=== PATIENT | male | born 1950 | race Caucasian/White ===

== ENCOUNTER 2016-11-24 14:35 | Emergency (ER) | payer MEDICARE, BC ==
[~2016-11-24 14:35] MED LIST: CYCL10TA2 PO; PRED20TA PO
[2016-11-24 15:03] VITALS: BP 140/74
--- NOTE | 2016-11-24 15:29 | PHYS DOC ---
Past Medical History Past Medical History: DVT, Other Additional Past Medical Histor: ENLARGED PROSTATE Past Surgical History: Appendectomy, Knee Replacement, Tonsillectomy, Other Additional Past Surgical Histo: KNEE SURGERY RIGHT FOOT SURGERY WITH DUSTIN AND PINS Alcohol Use: None Drug Use: None Adult General Chief Complaint Chief Complaint: Neck Pain [facility] HPI Patient is a 65 year old male presents emergency room with multiple complaints : Atraumatic neck pain the patient attributes to using his crutches because his right foot is currently in a cast following surgery. Patient does have a history of spinal stenosis and degenerative disc disease. He is adamant that he has not injured his neck secondary to a fall. Patient also complains of bilateral wrist pain, right currently greater than left. He also exhibits utilizing the crutches with. He also complains of atraumatic right knee pain is been ongoing for several weeks. Patient have a slip and fall. He has been able to perform partial weightbearing with his right knee. He states it hurts more when he's had his legs crossed. He states when he crosses his legs, his right knee as to her much more especially when he straightens it out. Patient also has a complaint of an ongoing cough has been present for approximately 2 and half weeks. Patient is a pack-a-day smoker. He has cut back from 2 packs a day within the past year. He denies any history of pulmonary disease. He denies antibiotics, hospitalization or foreign travel within the past 90 days. Given these complaints, his primary complaint is his neck pain. He has been seen here in the past. He states he was seen by a "spine surgeon" who essentially stated that surgery would not do any good. Patient has also gone to see a physical therapist and a massage therapist. He states that he was not receiving very well with the physical therapy clinic and will not go back there. Review of Systems Review of Systems Constitutional: Denies fever or chills [] Eyes: Denies change in visual acuity, redness, or eye pain [] HENT: Denies nasal congestion or sore throat [] Respiratory: Denies cough or shortness of breath [] Cardiovascular: No additional information not addressed in HPI [] GI: Denies abdominal pain, nausea, vomiting, bloody stools or diarrhea [] : Denies dysuria or hematuria [] Musculoskeletal: Denies back pain or joint pain [] Integument: Denies rash or skin lesions [] Neurologic: Denies headache, focal weakness or sensory changes [] Endocrine: Denies polyuria or polydipsia [] Current Medications Current Medications Current Medications Medications (Trade) Dose Ordered Sig/Cynthia Start Time Stop Time Status Last Admin Dose Admin Dexamethasone Sodium Phosphate (Decadron) 10 mg 1X ONCE 11/24/16 15:30 11/24/16 15:31 DC 11/24/16 15:44 10 MG Morphine Sulfate 10 mg 1X ONCE 11/24/16 15:30 11/24/16 15:31 DC 11/24/16 15:41 10 MG Orphenadrine Citrate (Norflex) 60 mg 1X ONCE 11/24/16 15:30 11/24/16 15:31 DC 11/24/16 15:43 60 MG Allergies Allergies Allergies Coded Allergies Type Severity Reaction Last Updated Verified iron Allergy Mild rash 06/19/15 Yes Physical Exam Physical Exam Constitutional: Well developed, well nourished, mild distress, non-toxic appearance. Patient smells of cigarette smoke. HENT: Normocephalic, atraumatic, bilateral external ears normal, oropharynx moist, no oral exudates, nose normal. Eyes: PERRLA, EOMI, conjunctiva normal, no discharge. [] Neck: Patient's neck is normal in appearance without any erythema or obvious deformity. There is tenderness to palpation to the bilateral paraspinous soft tissues at the level of C2-C5. There is no palpable defect, deformity or active spasm. There is also some midline tenderness in the same region. There is no step-off deformity. Brudzinski's is negative. Patient does complain of increased pain with both left and right lateral rotation as well as flexion and extension. Cardiovascular:Heart rate regular rhythm, no murmur [] Lungs & Thorax: There is no respiratory distress respiratory fatigue. Lung sounds are clear to auscultation bilaterally. Abdomen: Bowel sounds normal, soft, no tenderness, no masses, no pulsatile masses. [] Skin: Warm, dry, no erythema, no rash. [] Back: No tenderness, no CVA tenderness. [] Extremities: Right knee is normal in appearance with mild tenderness to palpation to the insertion point of the vastus lateralis. There is no palpable defect or deformity. Right knee is without fusiform swelling and erythema. There is no high riding patella. Ligaments are stable with solid endpoints. Right wrist is normal in appearance without erythema or swelling. There is tenderness to palpation to the flexor tendons near the insertion to the carpal tunnel. There is no palpable defect, deformity. There is no erythema. Neurologic: Alert and oriented X 3, normal motor function, normal sensory function, no focal deficits noted. [] Psychologic: Affect normal, judgement normal, mood normal. [] Current Patient Data Vital Signs Vital Signs Date Time Temp Pulse Resp B/P Pulse Ox O2 Delivery O2 Flow Rate FiO2 11/24/16 15:03 97.6 88 22 94 Room Air 97.6 EKG EKG [] Radiology/Procedures Radiology/Procedures [] Course & Med Decision Making Course & Med Decision Making Pertinent Labs and Imaging studies reviewed. (See chart for details) [] Dragon Disclaimer Dragon Disclaimer This electronic medical record was generated, in whole or in part, using a voice recognition dictation system. Departure Departure Impression: Primary Impression: Degenerative disc disease, cervical Additional Impressions: Tendinitis of both wrists Knee pain, right Disposition: HOME, SELF-CARE Condition: GOOD Referrals: BOLA COYNE (PCP) Patient Instructions: Cervical Strain and Sprain with Rehab-SportsMed, Cough, Adult, [id number], Knee Pain, Tendinitis, [id number] Additional Instructions: 1. Take the medication as prescribed. You did receive a long-acting steroid here in the emergency department. 2. It will be very important for you to follow up with your primary care doctor next week to discuss your neck pain, wrist pain, knee pain and cough. It is also important for you to make contact with your primary care doctor's office so that arrangements can be made to have your PT/INR drawn. 3. Review the discharge instructions for self-care and reasons to return to the emergency department. 4. Call your primary care doctor's office Sunday to schedule a follow-up appointment. Scripts Cyclobenzaprine Hcl 10 Mg Tablet1 Tab PO TID muscle relaxer #21 TAB Prov:ALLYSON ORTEGA 11/24/16 Oxycodone/Apap 7.5-325 (Percocet 7.5-325 Mg Tablet)1 Each Tablet1 Tab PO PRN Q6HRS PRN PAIN #20 TAB Ref 0 Prov:ALLYSON ORTEGA 11/24/16 Problem Qualifiers ALLYSON ORTEGA Nov 24, 2016 15:29
[2016-11-24] MEDS ORDERED: MORPHINE SULFATE 10 MG/ML VIAL. IM ONE (15:30)
[2016-11-24] MEDS ORDERED: DEXAMETHASONE SOD PHOS 4 MG/ML VIAL IM ONE (15:30)
[2016-11-24] MEDS ORDERED: ORPHENADRINE CITRATE 60 MG/2 ML VIAL. IM ONE (15:30)
[2016-11-24] MEDS ORDERED: OXYC-244 PO (15:55)
[2016-11-24] MEDS ORDERED: CYCL10TA2 PO (15:55)
== END 2016-11-24 16:01 | disposition home or self-care (01) ==
LOC: ER 14:35
DX: M50.30 Other cervical disc degeneration, unspecified cervical region (principal); M77.9 Enthesopathy, unspecified; M25.561 Pain in right knee; F17.210 Nicotine dependence, cigarettes, uncomplicated; Z86.718 Personal history of other venous thrombosis and embolism; Z96.659 Presence of unspecified artificial knee joint; Z91.048 Other nonmedicinal substance allergy status
CPT/HCPCS: 96372; 99284; J1100; J2270; J2360

== ENCOUNTER → 2017-03-14 | Outpatient (CLI) | payer MEDICARE, BC ==
[~2017-03-14] MED LIST changes: +OXYC-327 PO
--- NOTE | 2017-03-14 10:49 | KCIC ---
TESTICULAR/SCROTUM History: Scrotal swelling and pain Comparison: None. Findings: Multiple sonographic images to include grayscale, color, and duplex spectral analysis waveform images of the testicles and scrotum are submitted. Right testicle measured 3.8 x 2.6 x 4.9 cm. Left testicle measured 4.5 x 2.5 x 3.3 cm. There is ectasia of the rete testes bilaterally. There is also nearly hypoechoic lesion with fine internal echoes of the inferior right testicle up to 0.5 x 0.5 x 0.5 cm in size. There is also nearly anechoic cyst of the right epididymal head up to 0.6 cm in size. There is also a large 5.5 x 3.2 x 2.8 cm hypoechoic septated cyst of the right epididymal body extending to the tail, some fine internal echoes present. There is a hypoechoic lesion with peripheral mild echogenicity of the inferior left testicle up to 0.5 x 0.5 x 0.7 cm in size. There is normal color flow of both testicles, normal low resistance vascularity of interrogated intratesticular vessels bilaterally. There are small bilateral hydroceles. There is a small cyst in the left epididymal head up to 0.7 cm in greatest dimension. No asymmetric hypervascularity is identified. Impression: 1. There is ectasia of the rete testes bilaterally, also cyst in the inferior right testicle and what likely represents complex cyst of the inferior left testicle although follow-up imaging to confirm stability such as in 6 months may be beneficial. 2. There is large septated, slightly complex cyst in the region of the right epididymal body and tail. 3. There are small bilateral hydroceles. Electronically signed by: Donovan King MD (03/14/2017 10:46 AM)
== END | disposition home or self-care (01) ==
LOC: KCIC US 09:17
PROVIDERS: ATTEND Family Medicine
DX: N50.89 Other specified disorders of the male genital organs (principal); N43.3 Hydrocele, unspecified
CPT/HCPCS: 76870

== ENCOUNTER 2017-06-27 00:13 | Emergency (ER) | payer MEDICARE, BC ==
[~2017-06-27] VITALS: Ht 182.9 cm; Wt 99.8 kg
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
[2017-06-27] MEDS ORDERED: IOHEXOL 300 MG/ML 75 ML VIAL IV ONE (01:15)
[2017-06-27] MEDS ORDERED: CONTRAST GIVEN MC PRN (01:15)
[2017-06-27 01:17] LABS: POTASSIUM ISTAT 3.2 mmol/L (3.5-5.0)
[2017-06-27 01:30] VITALS: BP 107/58
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
--- NOTE | 2017-06-27 06:25 | EKG ---
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
== END 2017-06-27 03:24 | disposition home or self-care (01) ==
LOC: ER 00:13
DX: K11.20 Sialoadenitis, unspecified (principal); E04.9 Nontoxic goiter, unspecified; W86.8XXA Exposure to other electric current, initial encounter; Z86.718 Personal history of other venous thrombosis and embolism; Z88.8 Allergy status to other drugs, medicaments and biological substances; Y93.89 Activity, other specified; Y99.8 Other external cause status; Y92.89 Other specified places as the place of occurrence of the external cause
CPT/HCPCS: 70491; 80047; 93005; 99284; Q9967

== ENCOUNTER → 2017-07-25 | Outpatient (CLI) | payer MEDICARE, BC ==
[2017-06-27 01:30] VITALS: BP 107/58
[~2017-07-25] MED LIST changes: +IOHEXOL 300 MG/ML 100ML VIAL. IV ONE
--- NOTE | 2017-07-25 12:43 | KCIC ---
EXAM: CT angiogram of the head and neck with intravenous contrast. HISTORY: Stuttering. Cerebral vascular disease. TECHNIQUE: Computed tomographic images of the head were obtained without contrast. Computed tomographic images of the head and neck were obtained following the administration of 95 cc Omnipaque 300 intravenous contrast. Three-dimensional maximum intensity projection images were obtained. *One or more of the following individualized dose reduction techniques were utilized for this examination: 1. Automated exposure control. 2. Adjustment of the mA and/or kV according to patient size. 3. Use of iterative reconstruction technique. COMPARISON: None. FINDINGS: Head: Noncontrast images demonstrate no evidence of hemorrhage. There is no mass effect or midline shift. There is no hydrocephalus. There are subtle areas of hypodensity within the cerebral white matter, artifactual or due to chronic small vessel disease. The orbits are unremarkable. There is mild left maxillary and ethmoid sinus mucosal thickening. The mastoid air cells are clear. No calvarial lesion is seen. The angiographic images demonstrate no evidence of hemodynamically significant stenosis within the cerebral vessels. There is asymmetry in the caliber of the right greater than left A1 segments, a normal variant. The anterior communicating artery and right posterior communicating artery are patent. The left posterior communicating artery is developmental hypoplastic or absent. The right vertebral artery is dominant. No aneurysm is seen. No suspicious enhancing lesion is seen. NECK: There is a standard aortic arch branching pattern. The right vertebral artery slightly dominant. The vertebral arteries are widely patent throughout their extent. No hemodynamically significant stenosis is seen involving the carotid bifurcations. The parotid and submandibular glands are unremarkable. There is a diffusely enlarged thyroid with intrathoracic extension. There is mild right greater than left apical pulmonary emphysema. There are prominent lingular and palate obtained tonsils. No mass is seen. No pathologically enlarged lymph node is seen. There are multilevel degenerative changes throughout the cervical spine, including disc bulges with endplate osteophytosis and facet and uncovertebral arthropathy at multiple levels. This results in mild right and moderate left foraminal stenosis at C2-C3, mild bilateral foraminal stenosis at C3-C4, moderate bilateral foraminal stenosis at C4-C5, moderate right and severe left foraminal and mild central canal stenosis at C5-C6, and moderate to severe right and severe left and mild central canal stenosis at C6-C7. IMPRESSION: 1. No evidence of hemodynamically significant stenosis or aneurysm within the cervical or intracranial vessels. There are normal cerebral vascular anatomic variants, described above. 2. Heterogeneous enlarged thyroid, suggesting a goiter. Correlate with thyroid function laboratory values and cardiac sonography. 3. Multilevel degenerative change within the spine, resulting in stenosis as described above. 4. Subtle areas of hypodensity within the cerebral white, artifactual or due to chronic small vessel disease. PQRS Compliance Statement - Stenosis calculations for CT, MR and conventional angiography are based upon measurement of the distal ICA diameter in accordance with the NASCET methodology. Stenosis calculations for carotid ultrasound studies are derived from validated velocity criteria which are known to correlate with the NASCET methodology. Electronically signed by: Valerie Almaguer MD (07/25/2017 12:39 PM) [facility]
== END | disposition home or self-care (01) ==
LOC: KCIC CT 08:53
PROVIDERS: ATTEND Nurse Practitioner Adult Health
DX: I67.9 Cerebrovascular disease, unspecified (principal); I73.9 Peripheral vascular disease, unspecified; M48.02 Spinal stenosis, cervical region; E04.8 Other specified nontoxic goiter
CPT/HCPCS: 70496; 70498; Q9967

== ENCOUNTER 2017-08-30 09:56 | Emergency (ER) | payer MEDICARE, BC ==
[~2017-08-30 09:56] MED LIST changes: -IOHEXOL 300 MG/ML 100ML VIAL. IV ONE
[2017-08-30] MEDS ORDERED: FLUORESCEIN OPHTH TEST STRIP. OS ONE (10:45)
[2017-08-30] MEDS ORDERED: TETRACAINE 0.5% OPHTH SOLUTION 4ML BOTTLE. OS ONE (10:45)
[2017-08-30 10:54] VITALS: BP 132/64
--- NOTE | 2017-08-30 11:41 | PHYS DOC ---
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 Patient denies getting anything in the eye. Patient denies complete vision loss, denies any eye pain. Review of Systems Review of Systems Constitutional: Denies fever or chills [] Eyes:Reports seeing a "cobweb" on his left visual field. Denies redness, or eye pain [] Musculoskeletal: Denies back pain or joint pain [] Integument: Denies rash or skin lesions [] Neurologic: Denies headache, focal weakness or sensory changes [] All other systems were reviewed and found to be within normal limits, except as documented in this note. Current Medications Current Medications Current Medications Medications (Trade) Dose Ordered Sig/Cynthia Start Time Stop Time Status Last Admin Dose Admin Fluorescein Sodium (Ful-Yudy) 1 strip 1X ONCE 08/30/17 10:45 08/30/17 10:46 DC 08/30/17 11:01 1 STRIP Tetracaine HCl (Tetracaine) 1 drop 1X ONCE 08/30/17 10:45 08/30/17 10:46 DC 08/30/17 11:01 1 DROP Allergies Allergies Allergies Coded Allergies Type Severity Reaction Last Updated Verified iron Allergy Mild rash 06/19/15 Yes Physical Exam Physical Exam Constitutional: Well developed, well nourished, no acute distress, non-toxic appearance. [] HENT: Normocephalic, atraumatic, bilateral external ears normal, oropharynx moist, no oral exudates, nose normal. [] Eyes: PERRLA, EOMI, conjunctiva normal, no discharge. [] No obvious foreign object noted on the left eye. see eye exam on procedure note Skin: Warm, dry, no erythema, no rash. [] Back: No tenderness, no CVA tenderness. [] Extremities: No tenderness, no cyanosis, no clubbing, ROM intact, no edema. [] Neurologic: Alert and oriented X 3, normal motor function, normal sensory function, no focal deficits noted. [] Psychologic: Affect normal, judgement normal, mood normal. [] Current Patient Data Vital Signs Vital Signs Date Time Temp Pulse Resp B/P (MAP) Pulse Ox O2 Delivery O2 Flow Rate FiO2 08/30/17 10:54 97.8 58 18 97 Room Air 97.8 EKG EKG [] Radiology/Procedures Radiology/Procedures Indication: Foreign object to the left eye Procedure: The area of the foreign body was left eye. Local anesthesia over the foreign body site was 2 drops of tetracaine and the eye was stained with fluorescein. No foreign object was found in the left eye. The patient tolerated the procedure well Complications: none Course & Med Decision Making Course & Med Decision Making Pertinent Labs and Imaging studies reviewed. (See chart for details) Patient is in the ED complaining of seeing "cobweb" on his left visual field with no eye pain or injury. No foreign object was noted during visual exam. Visual acuity left 20/30, right 20/40, bilateral 20/30. I provided this patient an supervisor malted milk requested he follows up as soon as possible. Dragon Disclaimer Dragon Disclaimer This electronic medical record was generated, in whole or in part, using a voice recognition dictation system. Departure Departure Impression: Primary Impression: Foreign body, eye Disposition: HOME, SELF-CARE Condition: STABLE Referrals: BOLA COYNE (PCP) JAVIER ELIZALDE MD call office today and set up a follow up appointment as soon as possible Patient Instructions: Eye - Foreign Body Additional Instructions: We examined your left eye, we did not find any foreign objects, we highly recommend you contact the provided supervisor malted milk and set up a follow-up appointment as soon as possible. Problem Qualifiers Primary Impression: Foreign body, eye Encounter type: initial encounter Laterality: left Qualified Codes: T15.92XA - Foreign body on external eye, part unspecified, left eye, initial encounter ANUSHASCARLET BHATIA FRANCES Aug 30, 2017 11:41
== END 2017-08-30 11:48 | disposition home or self-care (01) ==
LOC: ER 09:56
DX: T15.92XA Foreign body on external eye, part unspecified, left eye, initial encounter (principal); N40.0 Benign prostatic hyperplasia without lower urinary tract symptoms; Z88.8 Allergy status to other drugs, medicaments and biological substances
CPT/HCPCS: 99283

== ENCOUNTER → 2018-11-11 | Outpatient (CLI) | payer MEDICARE, BC ==
[~2018-11-11] MED LIST changes: +IOHEXOL 300 MG/ML 100ML VIAL. IV ONE; -OXYC-327 PO; +OXYC1TAB19 PO
--- NOTE | 2018-11-11 13:59 | KCIC ---
CT study of the soft tissues the neck with contrast Clinical indications: Lump of the right side of the neck for one year. TECHNIQUE: After IV infusion 95 cc of Omnipaque 300, helical CT scanning of the soft tissues of the neck from the base of skull down to the lung apices was performed. PQRS compliance Statement One or more of the following individualized dose reduction techniques were utilized for this study: 1. Automated exposure control 2. Adjustment of the mA and/or kV according to patient size 3. Use of iterative reconstruction technique FINDINGS: No mass of the parotid or submandibular salivary gland is seen. The previously seen induration around the left parotid gland has resolved and the left parotid gland has decreased in size since the prior study. In the region of the palpable mass as indicated by the skin marker on the right side of the neck, there is a large complex solid and cystic mass lesion measuring 3.6 cm in AP dimension and 3.1 cm in transverse dimension and 5.3 cm in vertical dimension. This most likely represents an enlarged necrotic lymph node and is new from the prior study. There are additional deep cervical lymph nodes bilaterally many of which were seen previously and have not changed significantly. There is one lymph node seen just posterior to the right IJ at the same level as the mass which measures 15 mm in size. This lymph node measured 11 mm previously. There is chronic nodular enlargement of the sublingual tonsils of the base of the tongue in the vallecula. This has not changed significantly. There is chronic asymmetric soft tissue thickening of the right palatine tonsil. The adenoids are not abnormally thickened. The epiglottis and aryepiglottic folds and preepiglottic fat space and true cords and false cords are unremarkable. There is chronic homogeneous enlargement of the thyroid gland. This encircles the cervical esophagus. No lytic process is seen. No lung apical nodule is seen. IMPRESSION: New heterogeneous enhancing solid and cystic mass lesion of the right side of the neck starting at the level of the right carotid bifurcation and extending superiorly along the anterior edge of the right internal jugular vein and anterior edge of the sternocleidomastoid muscle. Right internal jugular vein is compressed but is not occluded. This most likely represents a necrotic metastatic lymph node. There is a small lymph node just posterior to this mass and posterior to the right internal jugular vein which has increased from 11 mm to 15 mm in size. There are additional lymph nodes of both sides of the neck which have not changed significantly. There is chronic nodular soft tissue thickening of the sublingual tonsils of the base of the tongue within the vallecula. There is chronic soft tissue thickening of the right palatine tonsil area. These findings have not changed significantly from the prior study. Recommend dedicated head and neck exam for further evaluation. Electronically signed by: Bill Zazueta MD (11/11/2018 1:54 PM) [facility]
== END | disposition home or self-care (01) ==
LOC: KCIC CT 11:43
PROVIDERS: ATTEND Otolaryngology
DX: R22.1 Localized swelling, mass and lump, neck (principal); E04.9 Nontoxic goiter, unspecified; J35.1 Hypertrophy of tonsils; Z87.891 Personal history of nicotine dependence
CPT/HCPCS: 70491; 82565; Q9967

== ENCOUNTER → 2018-11-14 | Outpatient (CLI) | payer MEDICARE, BC ==
[~2018-11-14] MED LIST changes: +CISPLATIN IV; +DEXA4TAB PO; -IOHEXOL 300 MG/ML 100ML VIAL. IV ONE; +ONDA8TAB9 PO; +WARF6TAB47 PO
--- NOTE | 2018-11-18 13:08 | PATHOLOGY ---
[facility] Accession Number: [id number] . 01 Material submitted: . PART A: RIGHT BASE OF TONGUE - FS PART B: RIGHT BASE OF TONGUE . 01 Clinical history: . Right neck mass, neoplasm on base of tongue, multinodular goiter. . 02 Diagnosis: A. Squamous mucosa and submucosa, right base of tongue biopsies: - INVASIVE SQUAMOUS CELL CARCINOMA, POORLY DIFFERENTIATED. SEE COMMENT. - Chronic inflammation. . B. Squamous mucosa and submucosa, right base of tongue biopsies: - INVASIVE SQUAMOUS CELL CARCINOMA, POORLY DIFFERENTIATED. - Chronic inflammation. LBQ/11/18/2018 . 02 Comment: Sections of the right base of tongue biopsies appear similar and reveal an invasive malignant squamous epithelial neoplasm. There are irregular nests and tongues of malignant squamous epithelium which appear to infiltrate the chronically inflamed submucosa. The tumor cells have a high N/C ratio and show no obvious evidence of keratinization. Some of the nests of tumor cells show central tumor necrosis. Mitotic figures are readily demonstrated. Immunoperoxidase stains for p16 are obtained and yield the following results: . p16 (A1): Tumor cells positive p16 (B1): Tumor cells positive . The morphologic findings are supportive of the diagnosis of an invasive poorly differentiated non-keratinizing squamous cell carcinoma. . The case is also examined by Dr. Mcclure, who concurs with the diagnosis. (JPM/db/sera; 11/18/2018) . . Special stains performed: immunoperoxidase stain for p16 on A1 and B1 . 02 Electronically signed: . Rinku Perez MD, Pathologist NPI- [id number] . 01 Gross description: . A. The specimen is received fresh for frozen section from [facility], and is designated "right base of tongue". This consists of multiple small segments of gayle and red soft tissue, ranging from 0.1 cm up to 0.4 cm in greatest dimension. These are submitted for frozen section as FSA1. The tissue remaining from frozen section is submitted for permanent sections as A1. (JPM:textile technologist; 11/14/2018) . B. Received in formalin labeled "Hakan Bowen, right base of tongue" is a 0.8 x 0.5 x 0.3 cm aggregate of gayle-pink soft tissue fragments. The specimen is submitted in cassette B1. ([facility]; 11/14/2018) . INTRAOPERATIVE CONSULTATION WITH FROZEN SECTION (Rinku Perez MD) . FSA1. Right base of tongue biopsies: - Squamous cell carcinoma. . The results are telephoned to Dr. Flowers at [facility]. . (JPM:textile technologist; 11/14/2018) . Frozen section performed at [facility], [address] [place] [id number]. . SYC/MBR . 02 Pathologist provided ICD-10: C01 . 02 CPT . 667807, 977251, 661933, G26106 Specimen Comment: A courtesy copy of this report has been sent to Specimen Comment: [phone], . Specimen Comment: Report sent to / DR COYNE Specimen Comment: A duplicate report has been generated due to demographic updates. Performed at: 01 [facility] [address], [place], [place] [id number] MD Alo Carlson MD Phone: [phone] Performed at: [address] [id number] MD Rinku Perez MD Phone: [phone]
== END | disposition home or self-care (01) ==
LOC: SPEC 11:32
PROVIDERS: ATTEND Otolaryngology
DX: C01 Malignant neoplasm of base of tongue (principal); E04.2 Nontoxic multinodular goiter
CPT/HCPCS: 88305; 88331; 88342

== ENCOUNTER → 2018-11-21 | Outpatient (CLI) | payer MEDICARE, BC ==
[~2018-11-21] MED LIST changes: -CISPLATIN IV; -DEXA4TAB PO; -ONDA8TAB9 PO; -WARF6TAB47 PO
--- NOTE | 2018-11-21 14:22 | RAD ---
FDG tumor localization scan, PET/CT, 11/21/2018: History: Base of tongue cancer, initial staging Following IV injection of 15.6 mCi of 18 F-FDG, imaging was performed from the skull base to the proximal thighs. The noncontrast CT component was performed for attenuation correction and anatomic localization purposes rather than for primary diagnosis. The patient's blood glucose level at the time of injection was 100 MG/DL. There is a moderate sized hypermetabolic mass at the base of the tongue extending into the vallecula. It is centered at the midline. It demonstrates a maximum SUV of 15.2. There is mildly increased activity involving the remainder of the tongue which may be physiologic or biopsy-related. There is a nearby right upper cervical mass along the posterior aspect of the mandibular angle which is hypermetabolic. It measures 3.5 cm and demonstrates a maximum SUV of 18.6. This corresponds to the mass described on the 11/11/2018 CT study and is most compatible with adenopathy on a metastatic basis. No other separate hypermetabolic adenopathy is identified on the right. There is a cluster of slightly prominent lymph nodes at the same level in the upper neck on the left which demonstrates low level FDG uptake with a maximum SUV of 3.2. The thyroid gland is symmetrically enlarged and demonstrates unusual posterior extensions along the lateral aspects of the cervical esophagus. No hypermetabolic thyroid lesion is seen. No abnormal mediastinal or hilar FDG uptake is seen. The lung parenchyma is unremarkable. Normal GI tract and urinary tract activity is present in the abdomen and pelvis. No hypermetabolic abdominal or pelvic lesion is seen. Incidental CT findings include the presence of a small low density lesion in the right lobe of the liver which is probably a cyst. There is sigmoid diverticulosis. There is mild nonspecific prostatic enlargement. IMPRESSION: 1. Hypermetabolic mass at the base of the tongue compatible with the patient's known malignancy. 2. Large hypermetabolic upper cervical lymph node on the right, likely on a metastatic basis. 3. A cluster of small upper cervical lymph nodes on the left are slightly hypermetabolic. These may be reactive or metastatic in nature.
== END | disposition home or self-care (01) ==
LOC: PETSC 10:53
PROVIDERS: ATTEND Otolaryngology
DX: C01 Malignant neoplasm of base of tongue (principal); R59.0 Localized enlarged lymph nodes; K57.30 Diverticulosis of large intestine without perforation or abscess without bleeding; N40.0 Benign prostatic hyperplasia without lower urinary tract symptoms; E04.9 Nontoxic goiter, unspecified
CPT/HCPCS: 78815; A9552

== ENCOUNTER 2018-11-27 06:49 | Outpatient (CLI) | payer MEDICARE, BC ==
[2018-11-27] VITALS (8 sets, daily range): BP systolic 105–143; BP diastolic 54–70
[~2018-11-27] VITALS: Ht 181.6 cm; Wt 99.8 kg
[2018-11-27] MEDS ORDERED: WARF6TAB47 PO (07:12)
[2018-11-27 07:32] LABS: BASO # 0.1 x10^3/uL (0.0-0.2); BASO % 1 % (0-3); EOS # 0.2 x10^3/uL (0.0-0.7); EOS % 3 % (0-3); HEMATOCRIT 43.2 % (39.0-53.0); HEMOGLOBIN 14.4 g/dL (13.0-17.5); LYMPH # 1.7 x10^3/uL (1.0-4.8); LYMPH % 26 % (24-48); MEAN CORPUSCULAR HEMOGLOBIN 34 pg (25-35); MEAN CORPUSCULAR HGB CONC 33 g/dL (31-37); MEAN CORPUSCULAR VOLUME 101 fL (79-100); MONO # 0.5 x10^3/uL (0.0-1.1); MONO % 7 % (0-9); NEUT # 4.2 x10^3uL (1.8-7.7); NEUT % 64 % (31-73); PLATELET COUNT 163 x10^3/uL (140-400); RED BLOOD COUNT 4.29 x10^6/uL (4.30-5.70); RED CELL DISTRIBUTION WIDTH 14.4 % (11.5-14.5); WHITE BLOOD COUNT 6.6 x10^3/uL (4.0-11.0)
[2018-11-27 07:43] LABS: PROTHROMBIN TIME PATIENT 13.5 SEC (11.7-14.0)
[2018-11-27] MEDS ORDERED: LIDOCAINE 1%/EPI 1:100,000 20 ML VIAL. ONE (08:16)
[2018-11-27] MEDS ORDERED: MIDAZOLAM HCL/PF 5 MG/5 ML VIAL. ONE (08:32)
[2018-11-27] MEDS ORDERED: fentaNYL PF VIAL 100 MCG/2 ML VIAL ONE (08:32)
[2018-11-27] MEDS ORDERED: LIDOCAINE 1%/EPI 1:100,000 20 ML VIAL. IJ ONE (09:00)
[2018-11-27] MEDS ORDERED: MIDAZOLAM HCL/PF 5 MG/5 ML VIAL. IV ONE (09:00)
[2018-11-27] MEDS ORDERED: fentaNYL PF VIAL 100 MCG/2 ML VIAL IV ONE (09:00)
--- NOTE | 2018-11-27 10:54 | NUR ---
Discharge Note: LISA SAEED Discharge instructions and discharge home medications reviewed with Patient and significan other and a copy given. All questions have been answered and understanding verbalized. The following instructions and handouts were given: Moderate sedation and mandy cath care. Discontinued lines and drains: right wrist PIV, dressing clean dry intact. Patient discharged to home with sigificant other via private vehicle.
--- NOTE | 2018-11-27 11:30 | RAD ---
Procedure: Ultrasound and fluoroscopically guided placement of right internal jugular power port.. 11/27/2018 11:26 AM Clinical Indication: Tongue Cancer Sedation: Conscious sedation was administered for 30 minutes. The patient was monitored by a qualified independent observer throughout the time of sedation. Please refer to the medical record for exact doses of medications utilized to achieve moderate sedation. Fluoroscopy time: 1.4 MINUTES Dose area product: 4 Gycm2 Consent: The procedure was explained in its entirety to the patient or the patients designated retail wireless sales representative by a member of the treatment team, including a discussion of the risks, benefits and commonly accepted alternatives to the procedure, as well as the expected consequences of no therapy whatsoever. Discussion of the risks included, but was not limited to, those that are most frequent and those that are rare but possibly severe or life-threatening, as well as the possibility of unforeseen complications. Technique and Findings: All elements of maximal sterile barrier technique including the use of a cap, mask, sterile gown, sterile gloves, large sterile sheet, appropriate hand hygiene, and 2% chlorhexidine for cutaneous antisepsis (or acceptable alternative antiseptic per current guidelines) were followed for this procedure. Following informed consent, and a timeout procedure, the patient was prepped and draped in the usual sterile fashion. Ultrasound interrogation of the right neck revealed patency and compressibility of the right internal jugular vein. A 21-gauge micropuncture was then used to gain access to this vein under ultrasound guidance. A hard copy ultrasound image was recorded. The needle was exchanged over a wire for a sheath. A 1 inch incision was made several centimeters inferior to the venotomy site. A catheter was tunneled from this site dermatotomy site in the neck. Catheter was advanced through peel-away sheath such that its tip was in the proximal right atrium with the patient supine. The catheter was trimmed to length and connected to the port reservoir. The port was found to flush and aspirate normally. The wound was closed in layers using 4-0 Vicryl suture. Sterile dressings were applied. Impression: Successful ultrasound and fluoroscopically guided placement of a right internal jugular PowerPort
[2018-12-02] MEDS ORDERED: ONDA8TAB9 PO (14:53)
[2018-12-02] MEDS ORDERED: CISPLATIN IV (14:59)
[2018-12-02] MEDS ORDERED: DEXA4TAB PO (15:02)
== END 2018-11-27 10:40 | disposition home or self-care (01) ==
LOC: INTRAD 06:49
PROVIDERS: ATTEND Internal Medicine Hematology & Oncology
DX: C02.9 Malignant neoplasm of tongue, unspecified (principal); Z91.09 Other allergy status, other than to drugs and biological substances; Z79.01 Long term (current) use of anticoagulants
CPT/HCPCS: 36415; 36561; 76937; 77001; 85025; 85610; 99152; 99153; C1788; C1892; J0696; J2250; J3010; J3490; C1751

== ENCOUNTER → 2019-03-25 | Outpatient (CLI) | payer MEDICARE, BC ==
[2018-11-27 10:35] VITALS: BP 121/62
[~2019-03-25] MED LIST changes: +CISPLATIN IV; +CONTRAST GIVEN. MC PRN; +DEXA4TAB PO; +ONDA8TAB9 PO; +PILO5TAB11 PO; +WARF6TAB47 PO
[2019-03-25] MEDS: IOHEXOL 300 MG/ML 100ML VIAL. IV ONE (08:09)
--- NOTE | 2019-03-25 16:35 | RAD ---
CT STUDY OF THE SOFT TISSUES OF THE NECK WITH CONTRAST INDICATIONS: Base of tongue cancer with right-sided neck involvement. COMPARISON: 11/11/2018. At technique: After IV infusion of 70 cc of Omnipaque 300, helical CT scanning of the soft tissues of the neck was performed. PQRS compliance Statement One or more of the following individualized dose reduction techniques were utilized for this study: 1. Automated exposure control 2. Adjustment of the mA and/or kV according to patient size 3. Use of iterative reconstruction technique FINDINGS: Thyroid gland is diffusely enlarged but homogeneous. The previously seen large necrotic lymph node of the right side of the neck is much smaller in size now measuring 18 mm in AP dimension and 14 mm in transverse dimension. The other lymph node of the right side of the neck adjacent to the IJ mentioned previously has decreased in size. No new cervical lymphadenopathy or soft tissue mass is evident. The nodular soft tissue thickening of the base of tongue within the valleculae is much smaller in size today. It measures 12 mm in AP thickness. It measured 26 mm in AP thickness previously. The fullness of the palatine tonsillar area on the right side is not seen today. The true cords and false cords and epiglottis and aryepiglottic folds are unremarkable. No opacification of the paranasal sinuses and middle ear cavities or mastoid sinuses is seen. No lytic process is evident. No lung apical infiltrate is seen. Calcified granuloma of the left upper lobe is seen. IMPRESSION: Significant decrease in size of large necrotic lymph node within the right side of the neck seen previously. Significant decrease in size of nodular soft tissue mass of the base of the tongue within the vallecula. Electronically signed by: Bill Zazueta MD (03/25/2019 4:32 PM) [place] [id number]
== END | disposition home or self-care (01) ==
LOC: CT 07:34
PROVIDERS: ATTEND Radiology Radiation Oncology
DX: C01 Malignant neoplasm of base of tongue (principal); J84.10 Pulmonary fibrosis, unspecified
CPT/HCPCS: 70491; Q9967

== ENCOUNTER → 2019-06-26 | Outpatient (CLI) | payer MEDICARE, BC ==
[2018-11-27 10:35] VITALS: BP 121/62
[~2019-06-26] MED LIST changes: -CONTRAST GIVEN. MC PRN
--- NOTE | 2019-06-26 14:23 | RAD ---
Examination: PET W CT SKULL TO MIDTHIGH History: Restaging of base of the tongue cancer Comparison/Correlation: 11/21/2018 PET/CT exam, 03/25/2019 CT Neck with contrast FINDINGS: Net dose 15.23 mCi F-18 FDG was administered intravenously for purposes of PET/CT exam. Blood glucose level at the time of radiotracer administration was 110 mg/dL. Imaging was performed from the skull base to the proximal thighs. Hepatic reference uptake is SUV max of 2.1 . Uptake of radiotracer involving the partially visualized and is overall unremarkable. Uptake of radiotracer involving the base of the tongue region is fairly symmetric and relatively less than on the prior exam. Lymphadenopathy in the right side of the neck previously seen on CT exam of 03/25/2019 is no longer evident with lymph nodes currently being of less than 0.7 cm short axis diameter in size. No significant uptake identified involving these lymph nodes. No abnormal uptake involving the left side of the neck. Uptake of radiotracer involving the chest, abdomen, and pelvis is normal. Episodes involving of the lung apices noted. Calcified abdomen both the left lateral lung field. Right-sided infusion port catheter identified. Hepatic dome cyst is again seen. Diverticulosis of the colon is present. No extraluminal gas. No radiopaque collecting system calculi. Prostatomegaly is present. IMPRESSION: Resolution of abnormal uptake involving the base of the tongue and lymph nodes of the upper neck. Previously seen enlarged right upper cervical lymph nodes are no longer enlarged. No foci of intense uptake to suggest active neoplastic or metastatic disease. Prostatomegaly. Electronically signed by: Iggy Holland MD (06/26/2019 2:20 PM) [facility]
== END | disposition home or self-care (01) ==
LOC: PETSC 07:22
PROVIDERS: ATTEND Radiology Radiation Oncology
DX: K57.30 Diverticulosis of large intestine without perforation or abscess without bleeding (principal); J98.4 Other disorders of lung; K76.89 Other specified diseases of liver; Z85.810 Personal history of malignant neoplasm of tongue
CPT/HCPCS: 78815; A9552

== ENCOUNTER 2019-07-11 06:59 | Outpatient (CLI) | payer MEDICARE, BC ==
[~2019-07-11] VITALS: Ht 182.9 cm; Wt 90.7 kg
[2019-07-11 07:23] VITALS: BP 123/63
[2019-07-11 07:37] LABS: BASO % 1 % (0-3); EOS # 0.1 x10^3/uL (0.0-0.7); EOS % 3 % (0-3); HEMATOCRIT 35.3 % (39.0-53.0); LYMPH # 0.5 x10^3/uL (1.0-4.8); LYMPH % 17 % (24-48); MEAN CORPUSCULAR HEMOGLOBIN 36 pg (25-35); MEAN CORPUSCULAR HGB CONC 34 g/dL (31-37); MEAN CORPUSCULAR VOLUME 106 fL (79-100); MONO # 0.3 x10^3/uL (0.0-1.1); MONO % 8 % (0-9); NEUT # 2.2 x10^3/uL (1.8-7.7); NEUT % 71 % (31-73); PLATELET COUNT 122 x10^3/uL (140-400); RED BLOOD COUNT 3.34 x10^6/uL (4.30-5.70); RED CELL DISTRIBUTION WIDTH 15.5 % (11.5-14.5); WHITE BLOOD COUNT 3.1 x10^3/uL (4.0-11.0)
[2019-07-11 07:45] LABS: PROTHROMBIN TIME PATIENT 14.2 SEC (11.7-14.0)
[2019-07-11] MEDS ORDERED: LIDOCAINE 1%/EPI 1:100,000 20 ML VIAL. ONE (08:01)
[2019-07-11] MEDS ORDERED: LIDOCAINE 1%/EPI 1:100,000 20 ML VIAL. INJ ONE (08:30)
[2019-07-11 09:00] VITALS: BP 113/61
--- NOTE | 2019-07-11 15:34 | RAD ---
Removal of right internal jugular port 07/11/2019 INDICATION: Port no longer needed. Discussion: The procedure was explained in its entirety to the patient or the patients designated hostess party sales representative by a member of the treatment team, including a discussion of the risks, benefits and commonly accepted alternatives to the procedure, as well as the expected consequences of no therapy whatsoever. Discussion of the risks included, but was not limited to, those that are most frequent and those that are rare but possibly severe or life-threatening, as well as the possibility of unforeseen complications. All elements of maximal sterile barrier technique including the use of a cap, mask, sterile gown, sterile gloves, large sterile sheet, appropriate hand hygiene, and 2% chlorhexidine for cutaneous antisepsis (or acceptable alternative antiseptic per current guidelines) were followed for this procedure. Preprocedural imaging demonstrates the port to be normal in position. 1% lidocaine was administered over the port reservoir. A 1 inch incision was made overlying the reservoir. The reservoir and catheter were removed through this incision intact. This was confirmed fluoroscopically. The wound was closed in layers using 4-0 Vicryl suture. Sterile dressings were applied. Total fluoroscopy time: 0.1 min Dose area product: 0.4 Gycm2 Anesthesia: Local only Impression: Removal of right internal jugular port.
== END 2019-07-11 09:20 | disposition home or self-care (01) ==
LOC: INTRAD 06:59
PROVIDERS: ATTEND Internal Medicine Hematology & Oncology
DX: Z45.2 Encounter for adjustment and management of vascular access device (principal); C02.9 Malignant neoplasm of tongue, unspecified; Z79.01 Long term (current) use of anticoagulants
CPT/HCPCS: 36415; 36590; 77001; 85025; 85610; J3490

== ENCOUNTER → 2019-09-02 | Outpatient (CLI) | payer MEDICARE, BC ==
[~2019-09-02] MED LIST changes: +CONTRAST GIVEN. MC PRN; +IOHEXOL 300 MG/ML 100ML VIAL. IV ONE
--- NOTE | 2019-09-02 18:06 | RAD ---
CT scan of the neck and chest with contrast 09/02/2019 CLINICAL HISTORY: Base of tongue cancer. TECHNIQUE: After the intravenous administration of 75 cc of Omnipaque 300, contiguous, 3 mm axial sections were obtained through the neck with 5 mm axial sections obtained through the chest and upper abdomen. One or more of the following individualized dose reduction techniques were utilized for this study: 1. Automated exposure control. 2. Adjustment of the mA and/or kV according to patient size. 3. Use of iterative reconstruction technique. FINDINGS: Fullness of the soft tissues of the base of the tongue extending to the vallecula is again seen, unchanged. A enlarged lymph node is seen immediately anterior and medial to the sternocleidomastoid muscle anterior to the right internal jugular vein in the suprahyoid neck which measures 1.6 cm in size. This has not significantly changed since previous examination. No new cervical lymphadenopathy is seen. The parotid and submandibular glands are within normal limits. The thyroid gland is enlarged and slightly heterogeneous, unchanged. Atherosclerotic calcification of the thoracic aorta and its branches is noted. The thoracic aorta is mildly tortuous but tapers normally. The heart is normal in size. No mediastinal, hilar or axillary lymphadenopathy is seen. Mild to moderate bullous emphysematous changes are seen involving the apices of both lungs. Areas of probable scarring are seen scattered throughout both lungs. No pulmonary mass or significant pulmonary nodule is seen. No area of consolidation is noted. No pneumothorax or pleural effusion is seen. Images through the upper abdomen demonstrate a 1.1 cm low-attenuation lesion involving the right lobe of the liver consistent with a hepatic cyst. Degenerative changes are seen throughout the cervical and thoracic spine. No acute osseous abnormality is seen. IMPRESSION: 1. Stable CT appearance of the neck as discussed above. No new mass or new cervical lymphadenopathy is seen. 2. There is no CT evidence of metastatic disease involving the chest. Electronically signed by: Gumaro Gomez MD (09/02/2019 6:03 PM) [facility]
== END ==
LOC: CT 09:55
PROVIDERS: ATTEND Internal Medicine Hematology & Oncology
DX: C01 Malignant neoplasm of base of tongue (principal); J43.9 Emphysema, unspecified; K76.89 Other specified diseases of liver; I70.0 Atherosclerosis of aorta; E04.9 Nontoxic goiter, unspecified; R59.9 Enlarged lymph nodes, unspecified; M19.90 Unspecified osteoarthritis, unspecified site; Z87.891 Personal history of nicotine dependence; Z90.89 Acquired absence of other organs; Z96.652 Presence of left artificial knee joint
CPT/HCPCS: 70491; 71260; Q9967

== ENCOUNTER → 2019-12-12 | Outpatient (CLI) | payer BC, MEDICARE ==
[~2019-12-12] MED LIST changes: -CONTRAST GIVEN. MC PRN
--- NOTE | 2019-12-12 12:28 | RAD ---
CT scan of the neck and chest with contrast 12/12/2019 CLINICAL HISTORY: Base of tongue cancer. TECHNIQUE: After the intravenous administration of 75 cc of Omnipaque 300, contiguous, 3 mm axial sections were obtained through the neck with 5 mm axial sections obtained through the chest and upper abdomen. One or more of the following individualized dose reduction techniques were utilized for this study: 1. Automated exposure control. 2. Adjustment of the mA and/or kV according to patient size. 3. Use of iterative reconstruction technique. FINDINGS: Comparison study is dated 09/02/2019. The mucosal structures of the nasopharynx are within normal limits. Asymmetry of the base of the tongue is again seen, right greater than left, unchanged. Soft tissue fullness is seen involving the inferior hypopharynx, left greater than right, unchanged. The larynx is within normal limits. No recurrent mass is definitely visualized. The parotid and submandibular glands are within normal limits. No cervical lymphadenopathy is seen. The thyroid gland is enlarged and extends into the superior mediastinum, unchanged. The patient is edentulous. The paranasal sinuses are essentially clear. Degenerative changes are seen involving the uncovertebral and facet joints throughout the cervical disc spaces. Mild atherosclerotic calcification of the thoracic aorta is seen. The thoracic aorta is minimally tortuous. The heart is normal in size. No hilar, mediastinal or axillary lymphadenopathy is noted. Mild bullous emphysematous changes are seen involving both upper lobes. Dependent subsegmental atelectasis is seen involving both lower lobes. No area of consolidation is seen. No pneumothorax or pleural effusion is noted. Areas of scarring are seen involving the right middle lobe and right lower lobe. Subsegmental atelectasis and or scarring seen involving the lingula. Small calcified granulomas involving the left upper lobe, unchanged. Images through the upper abdomen demonstrate a 1.4 cm rounded low-attenuation lesion within the dome of the liver consistent with a hepatic cyst. This is unchanged. Minimal S-shaped curvature of the thoracolumbar spine is seen. Degenerative changes are seen involving the thoracic spine. IMPRESSION: Stable CT appearance of the neck and chest as discussed above. No recurrent mass is seen. There is no CT evidence of metastatic disease involving the neck or chest. Electronically signed by: Gumaro Gomez MD (12/12/2019 12:25 PM) [facility] [place]
== END | disposition home or self-care (01) ==
LOC: CT 07:31
PROVIDERS: ATTEND Internal Medicine Hematology & Oncology
DX: C02.9 Malignant neoplasm of tongue, unspecified (principal); J43.9 Emphysema, unspecified; E04.9 Nontoxic goiter, unspecified; M47.812 Spondylosis without myelopathy or radiculopathy, cervical region; I70.0 Atherosclerosis of aorta; Q25.46 Tortuous aortic arch; J98.11 Atelectasis; J98.4 Other disorders of lung; J84.10 Pulmonary fibrosis, unspecified; K76.89 Other specified diseases of liver; M43.8X5 Other specified deforming dorsopathies, thoracolumbar region; M47.814 Spondylosis without myelopathy or radiculopathy, thoracic region
CPT/HCPCS: 70491; 71260; Q9967

== ENCOUNTER → 2020-03-03 | Outpatient (CLI) | payer BC, MEDICARE ==
[~2020-03-03] MED LIST changes: -IOHEXOL 300 MG/ML 100ML VIAL. IV ONE
[2020-03-03 09:29] LABS: BASO % 1 % (0-3); EOS # 0.1 x10^3/uL (0.0-0.7); EOS % 2 % (0-3); HEMATOCRIT 38.6 % (39.0-53.0); HEMOGLOBIN 13.3 g/dL (13.0-17.5); LYMPH # 0.6 x10^3/uL (1.0-4.8); LYMPH % 15 % (24-48); MEAN CORPUSCULAR HEMOGLOBIN 36 pg (25-35); MEAN CORPUSCULAR HGB CONC 35 g/dL (31-37); MEAN CORPUSCULAR VOLUME 104 fL (79-100); MONO # 0.3 x10^3/uL (0.0-1.1); MONO % 8 % (0-9); NEUT % 74 % (31-73); PLATELET COUNT 166 x10^3/uL (140-400); RED CELL DISTRIBUTION WIDTH 15.5 % (11.5-14.5); WHITE BLOOD COUNT 4.1 x10^3/uL (4.0-11.0)
[2020-03-03 09:46] LABS: ALBUMIN 3.3 g/dL (3.4-5.0); ALBUMIN/GLOBULIN RATIO 0.8 (1.0-1.7); CALCIUM 8.2 mg/dL (8.5-10.1); GFR 73.9; POTASSIUM 3.9 mmol/L (3.5-5.1); TOTAL BILIRUBIN 0.3 mg/dL (0.2-1.0); TOTAL PROTEIN 7.2 g/dL (6.4-8.2)
== END ==
LOC: LAB 08:51
PROVIDERS: ATTEND Internal Medicine Hematology & Oncology
DX: C02.9 Malignant neoplasm of tongue, unspecified (principal)
CPT/HCPCS: 36415; 80053; 85025

== ENCOUNTER → 2020-05-19 | Outpatient (CLI) | payer BC, MEDICARE ==
[2020-05-19 09:29] LABS: BASO % 1 % (0-3); EOS # 0.2 x10^3/uL (0.0-0.7); EOS % 4 % (0-3); HEMATOCRIT 41.6 % (39.0-53.0); HEMOGLOBIN 13.9 g/dL (13.0-17.5); LYMPH # 0.9 x10^3/uL (1.0-4.8); LYMPH % 22 % (24-48); MEAN CORPUSCULAR HEMOGLOBIN 36 pg (25-35); MEAN CORPUSCULAR HGB CONC 33 g/dL (31-37); MEAN CORPUSCULAR VOLUME 107 fL (79-100); MONO # 0.5 x10^3/uL (0.0-1.1); MONO % 12 % (0-9); NEUT # 2.6 x10^3/uL (1.8-7.7); NEUT % 62 % (31-73); PLATELET COUNT 153 x10^3/uL (140-400); RED CELL DISTRIBUTION WIDTH 16.4 % (11.5-14.5); WHITE BLOOD COUNT 4.2 x10^3/uL (4.0-11.0)
[2020-05-19 09:56] LABS: ALBUMIN 3.3 g/dL (3.4-5.0); ALBUMIN/GLOBULIN RATIO 0.8 (1.0-1.7); CALCIUM 8.2 mg/dL (8.5-10.1); GFR 73.9; POTASSIUM 4.9 mmol/L (3.5-5.1); TOTAL BILIRUBIN 0.4 mg/dL (0.2-1.0); TOTAL PROTEIN 7.3 g/dL (6.4-8.2)
== END | disposition home or self-care (01) ==
LOC: LAB 08:59
PROVIDERS: ATTEND Internal Medicine Hematology & Oncology
DX: C02.9 Malignant neoplasm of tongue, unspecified (principal)
CPT/HCPCS: 36415; 80053; 85025

== ENCOUNTER 2021-05-29 14:53 | Emergency (ER) | payer MEDICARE ==
[~2021-05-29] VITALS: Ht 182.9 cm; Wt 92.9 kg
[2021-05-29] MEDS ORDERED: fentaNYL PF VIAL 100 MCG/2 ML VIAL IVP ONE (18:00)
[2021-05-29] MEDS ORDERED: IV NORMAL SALINE 1000ML BAG 1,000 ML IV SCH (18:00)
--- NOTE | 2021-05-29 18:02 | PHYS DOC ---
Past Medical History Past Medical History: DVT, Other Additional Past Medical Histor: ENLARGED PROSTATE, Bladder and throat Past Surgical History: Appendectomy, Cancer Surgery, Knee Replacement, Tonsillectomy, Other Additional Past Surgical Histo: KNEE SURGERY RIGHT FOOT SURGERY WITH DUSTIN AND PINS Smoking Status: Former Smoker Alcohol Use: None Drug Use: None General Adult EDM: Chief Complaint: ABDOMINAL PAIN HPI: HPI: Patient is a 70 year old male who presents with today began having left groin and lower abdominal and testicle pain with sharp and radiating rates at 8 out of 10. He states he does not have any pain with urinating or back pain. He states there is no discharge from his penis or swelling to his testicles. He denies fever, nausea, vomiting, diarrhea, chest pain, shortness of air. She has a history of bladder cancer, throat cancer, tonsil ectomy, appendectomy, DVT, knee and foot surgery with plates and pins, enlarged prostate. Review of Systems: Review of Systems: Constitutional: Denies fever or chills. [] Eyes: Denies change in visual acuity. [] HENT: Denies nasal congestion or sore throat. [] Respiratory: Denies cough or shortness of breath. [] Cardiovascular: Denies chest pain or edema. [] GI: + Lower abdominal pain, denies nausea, vomiting, bloody stools or diarrhea. [] : Denies dysuria. + Groin and scrotal pain [] Musculoskeletal: Denies back pain or joint pain. [] Integument: Denies rash. [] Neurologic: Denies headache, focal weakness or sensory changes. [] Endocrine: Denies polyuria or polydipsia. [] Lymphatic: Denies swollen glands. [] Psychiatric: Denies depression or anxiety. [] Heart Score: C/O Chest Pain: No Risk Factors: Risk Factors: DM, Current or recent (<one month) smoker, HTN, HLP, family history of CAD, obesity. Risk Scores: Score 0 - 3: 2.5% MACE over next 6 weeks - Discharge Home Score 4 - 6: 20.3% MACE over next 6 weeks - Admit for Clinical Observation Score 7 - 10: 72.7% MACE over next 6 weeks - Early Invasive Strategies Allergies: Allergies: Allergies Coded Allergies Type Severity Reaction Last Updated Verified iron Allergy Mild rash 06/19/15 Yes Physical Exam: PE: Constitutional: Well developed, well nourished, no acute distress, non-toxic appearance. [] HENT: Normocephalic, atraumatic, bilateral external ears normal, oropharynx moist, no oral exudates, nose normal. [] Eyes: PERRLA, EOMI, conjunctiva normal, no discharge. [] Neck: Normal range of motion, no tenderness, supple, no stridor. [] Cardiovascular:Heart rate regular rhythm, no murmur [] Lungs & Thorax: Bilateral breath sounds clear to auscultation [] Abdomen: Bowel sounds normal, soft, no tenderness, no masses, no pulsatile manfred s. [] Skin: Warm, dry, no erythema, no rash. [] Back: No tenderness, no CVA tenderness. [] Extremities: No tenderness, no cyanosis, no clubbing, ROM intact, no edema. [] Neurologic: Alert and oriented X 3, normal motor function, normal sensory function, no focal deficits noted. [] Psychologic: Affect normal, judgement normal, mood normal. [] Normal physical exam Current Patient Data: Vital Signs: Vital Signs Date Time Temp Pulse Resp B/P (MAP) Pulse Ox O2 Delivery O2 Flow Rate FiO2 05/29/21 17:15 98.2 52 18 130/77 (78) 98 Room Air 98.2 EKG: EKG: [] Radiology/Procedures: Radiology/Procedures: [] Impression: [facility] [address] [place] [address] IMAGING REPORT Signed PATIENT: LISA SAEED AACCOUNT: [id number] : 1950 LOCATION: ER AGE: 70 SEX: M EXAM STATUS: REG ER ORD. PHYSICIAN: EMMANUEL PERDOMO APRN REASON: lower abd and testicular pain, OMNI 300, 75 ML IV PROCEDURE: CT ABD PELV W/ IV CONTRST ONLY EXAM: CT Abdomen and Pelvis with IV contrast CLINICAL HISTORY: lower abd and testicular pain COMPARISON: none TECHNIQUE: Helical CT of the abdomen and pelvis was performed following the administration of intravenous contrast. Axial, coronal and sagittal reformatted images were generated. PQRS compliance statement - One or more of the following individualized dose reduction techniques were utilized for this study: 1. Automated exposure control 2. Adjustment of the mA and/or kV according to patient size 3. Use of iterative reconstruction technique FINDINGS: Lower Chest: Linear and patchy opacities lung bases likely scarring/atelectasis. 11 x 7 mm right lower lobe lung nodule. Interstitial prominence peripheral lower lungs. Abdomen and Pelvis: 11 mm right hepatic dome hypodense lesion measures fluid density, cystic. Gallbladder is normal. No biliary duct dilatation. Pancreas and spleen are unremarkable. Adrenal glands are normal. Symmetric nephrograms. No focal renal lesion. No hydronephrosis. No hydroureter. Bladder wall thickening may be seen with cystitis. Moderate right colonic stool content is seen. The left colon is essentially decompressed. Appendix is not convincingly seen although no pericecal inflammatory changes. Colonic diverticulosis without CT evidence for acute diverticulitis. Aorta is normal in caliber. Atherosclerotic calcifications. Trace hydroceles. Small fat-containing inguinal hernias. Bones: Hip joint degenerative changes are seen. Degenerative changes of the spine. No aggressive osseous lesion. IMPRESSION: 1. Bladder wall thickening may be seen with cystitis. 2. Trace hydroceles. The testes can be further assessed by ultrasound if clinically indicated. 3. Colonic diverticulosis without acute diverticulitis. Electronically signed by: Bj Storm MD (05/29/2021 7:23 PM) [facility] DICTATED and SIGNED BY: BJ STORM MD DATE: 05/29/21 [id number] [facility] [address] [place] [address] IMAGING REPORT Signed PATIENT: LISA SAEED AACCOUNT: [id number] : 1950 LOCATION: ER AGE: 70 SEX: M EXAM STATUS: REG ER ORD. PHYSICIAN: EMMANUEL PERDOMO APRN REASON: Pain PROCEDURE: TESTICULAR/SCROTUM CLINICAL HISTORY: Reason: Pain / Spl. Instructions: / History: COMPARISON: None available. TECHNIQUE: Ultrasound images of the scrotum was performed with mckeon-scale and color doppler. FINDINGS: The right testis measures 5.4 x 3.4 x 2.5 cm. The left testis measures 5.0 x 2.6 x 2.6 cm. No focal testicular mass. Small cysts within the right testicle measuring 6 to 7 mm in size. There is also a complex cyst at the left testicle measures up to 10 mm maximum dimension. No solid mass. There are small epididymal head cysts on the left. Right epididymis unre markable. Small left hydrocele. No significant varicocele.. IMPRESSION: 1. No acute sonographic abnormality. 2. Multiple small testicular cysts. 3. Small left hydrocele. Electronically signed by: Galo Jameson MD (05/29/2021 7:35 PM) [place] DICTATED and SIGNED BY: GALO JAMESON MD DATE: 05/29/21 [id number] 0 Course & Med Decision Making: Course & Med Decision Making Pertinent Labs and Imaging studies reviewed. (See chart for details) See HPI. Alert and oriented x4. Ambulatory steady gait. Skin pink warm and dry. abdomen is soft and nontender. No testicular pain. Lungs are clear all station all lobes. Afebrile. No CVA tenderness. No penile discharge. No scrotal cellulitis. Ultrasound shows trace hydroceles. CT shows cystitis. Also CT shows prostate nodules. [] Dragon Disclaimer: Dragon Disclaimer: This electronic medical record was generated, in whole or in part, using a voice recognition dictation system. Departure Departure Impression: Primary Impression: Cystitis Additional Impressions: Hydrocele in adult Prostate nodule Disposition: 01 HOME / SELF CARE / HOMELESS Condition: STABLE Referrals: BOLA COYNE (PCP) Patient Instructions: Urinary Tract Infection Additional Instructions: Follow-up with your primary care doctor or a urologist of your choosing. CT showed trace hydrocele, and prostate nodules that should be checked. Take medication as prescribed and with food. Scripts Ciprofloxacin Hcl (CIPRO) 500 Mg Tablet 1 TAB PO BID for 10 Days, #20 TAB 0 Refills Prov: EMMANUEL PERDOMO APRN 05/29/21 EMMANUEL PERDOMO APRN May 29, 2021 18:02
[2021-05-29 18:07] LABS: BILIRUBIN,URINE NEGATIVE (NEG); CLARITY,URINE CLEAR; COLOR,URINE YELLOW; NITRITE,URINE NEGATIVE (NEG); PH,URINE 6.5 (<5.0-8.0); PROTEIN,URINE NEGATIVE (NEG-TRACE); UROBILINOGEN,URINE 0.2 mg/dL (0.2 mg/dL)
[2021-05-29 18:16] LABS: BACTERIA,URINE 0 /HPF (0-FEW); RBC,URINE 0 /HPF (0-2); WBC,URINE 0 /HPF (0-4)
[2021-05-29 18:28] LABS: BASO % 0 % (0-3); EOS # 0.1 x10^3/uL (0.0-0.7); EOS % 1 % (0-3); HEMATOCRIT 39.4 % (39.0-53.0); HEMOGLOBIN 13.7 g/dL (13.0-17.5); LYMPH # 0.7 x10^3/uL (1.0-4.8); LYMPH % 10 % (24-48); MEAN CORPUSCULAR HEMOGLOBIN 36 pg (25-35); MEAN CORPUSCULAR HGB CONC 35 g/dL (31-37); MEAN CORPUSCULAR VOLUME 104 fL (79-100); MONO # 0.4 x10^3/uL (0.0-1.1); MONO % 5 % (0-9); NEUT # 6.1 x10^3/uL (1.8-7.7); NEUT % 84 % (31-73); PLATELET COUNT 168 x10^3/uL (140-400); RED CELL DISTRIBUTION WIDTH 15.4 % (11.5-14.5); WHITE BLOOD COUNT 7.2 x10^3/uL (4.0-11.0)
[2021-05-29] MEDS ORDERED: IV NORMAL SALINE 1000ML BAG 1,000 ML IV ONE (18:30)
[2021-05-29 18:33] LABS: CALCIUM 8.6 mg/dL (8.5-10.1); GFR 73.7; POTASSIUM 4.1 mmol/L (3.5-5.1)
[2021-05-29 18:39] LABS: ALBUMIN 3.5 g/dL (3.4-5.0); ALBUMIN/GLOBULIN RATIO 0.9 (1.0-1.7); TOTAL BILIRUBIN 0.4 mg/dL (0.2-1.0); TOTAL PROTEIN 7.2 g/dL (6.4-8.2)
[2021-05-29] MEDS ORDERED: IOHEXOL 300 MG/ML 100ML VIAL. IV ONE (18:45)
[2021-05-29] MEDS ORDERED: CONTRAST GIVEN. MC PRN (19:00)
--- NOTE | 2021-05-29 19:25 | RAD ---
EXAM: CT Abdomen and Pelvis with IV contrast CLINICAL HISTORY: lower abd and testicular pain COMPARISON: none TECHNIQUE: Helical CT of the abdomen and pelvis was performed following the administration of intrave nous contrast. Axial, coronal and sagittal reformatted images were generated. PQRS compliance statement - One or more of the following individualized dose reduction techniques wer e utilized for this study: 1. Automated exposure control 2. Adjustment of the mA and/or kV according to patient size 3. Use of iterative reconstruction technique FINDINGS: Lower Chest: Linear and patchy opacities lung bases likely scarring/atelectasis. 11 x 7 mm right lower lobe lung n odule. Interstitial prominence peripheral lower lungs. Abdomen and Pelvis: 11 mm right hepatic dome hypodense lesion measures fluid density, cystic. Gallbladder is normal. No b iliary duct dilatation. Pancreas and spleen are unremarkable. Adrenal glands are normal. Symmetric nephrograms. No focal renal lesion. No hydronephrosis. No hydroureter. Bladder wall thicken ing may be seen with cystitis. Moderate right colonic stool content is seen. The left colon is essentially decompressed. Appendix is not convincingly seen although no pericecal inflammatory changes. Colonic diverticulosis without CT evidence for acute diverticulitis. Aorta is normal in caliber. Atherosclerotic calcifications. Trace hydroceles. Small fat-containing in guinal hernias. Bones: Hip joint degenerative changes are seen. Degenerative changes of the spine. No aggressive osseous les ion. IMPRESSION: 1. Bladder wall thickening may be seen with cystitis. 2. Trace hydroceles. The testes can be further assessed by ultrasound if clinically indicated. 3. Colonic diverticulosis without acute diverticulitis. Electronically signed by: Bj Hinojosa MD (05/29/2021 7:23 PM) [facility]
--- NOTE | 2021-05-29 19:37 | RAD ---
CLINICAL HISTORY: Reason: Pain / Spl. Instructions: / History: COMPARISON: None available. TECHNIQUE: Ultrasound images of the scrotum was performed with mckeon-scale and color doppler. FINDINGS: The right testis measures 5.4 x 3.4 x 2.5 cm. The left testis measures 5.0 x 2.6 x 2.6 cm. No focal testicular mass. Small cysts within the right testicle measuring 6 to 7 mm in size. There is also a complex cyst at the left testicle measures up to 10 mm maximum dimension. No solid mass. There are small epididymal head cysts on the left. Right epididymis unremarkable. Small left hydrocel e. No significant varicocele.. IMPRESSION: 1. No acute sonographic abnormality. 2. Multiple small testicular cysts. 3. Small left hydrocele. Electronically signed by: Galo Jameson MD (05/29/2021 7:35 PM) [id number]
[2021-05-29] MEDS ORDERED: CIPR500T94 PO (20:25)
[2021-05-29 20:57] VITALS: BP 122/63
== END 2021-05-29 21:10 | disposition home or self-care (01) ==
LOC: ER 14:53
DX: N30.90 Cystitis, unspecified without hematuria (principal); N43.3 Hydrocele, unspecified; N40.2 Nodular prostate without lower urinary tract symptoms; Z87.891 Personal history of nicotine dependence; Z90.89 Acquired absence of other organs; Z88.8 Allergy status to other drugs, medicaments and biological substances
CPT/HCPCS: 36415; 74177; 76870; 80053; 81001; 83690; 85025; 96361; 96374; 99285; J3010; J7030; Q9967